=== PATIENT | male | born 1965 | race Caucasian/White ===

== ENCOUNTER 2023-06-05 18:17 | Emergency (ER) | payer SELFPAY ==
[~2023-06-05] VITALS: Ht 172.7 cm; Wt 73.0 kg
[2023-06-05 18:24] VITALS: BP 154/97; PULSE 98; RESP 18; TEMP 98.3; O2SAT 100
[2023-06-05] MEDS ORDERED: ACET-2708 MT (19:37)
[2023-06-05] MEDS ORDERED: KETOROLAC 30MG/ML VIAL IM ONE (19:45)
== END 2023-06-05 22:04 | disposition home or self-care (01) ==
LOC: ER 18:17
DX: S50.311A Abrasion of right elbow, initial encounter (principal); F32.A Depression, unspecified; Y08.89XA Assault by other specified means, initial encounter; Y93.89 Activity, other specified; Y92.89 Other specified places as the place of occurrence of the external cause; Y99.8 Other external cause status
CPT/HCPCS: 99283